=== PATIENT | male | born 1970 | race Caucasian/White ===

== ENCOUNTER 2017-05-05 20:22 | Emergency (ER) | payer OTHER, SELFPAY ==
[2017-05-05] MEDS ORDERED: Diazepam 10 MG/2 ML SYRINGE ONE (20:47)
[2017-05-05] MEDS ORDERED: Labetalol HCl 100 MG/20 ML VIAL ONE (20:47)
[2017-05-05 20:51] LABS: #Basophils 0.1 thou/uL (0.0-0.2); #Eosinphils 0.1 thou/uL (0.0-0.7); #Lymphocytes 1.6 thou/uL (1.20-3.40); #Monocytes 0.5 thou/uL (0.11-0.59); #Neutrophils 9.7 thou/uL (1.40-6.50); %Basophils 0.8 % (0.0-1.0); %Eosinophils 0.6 % (0.0-10.0); %Lymphocytes 13.4 % (21.0-51.0); %Monocytes 3.8 % (0.0-10.0); %Neutrophils 81.3 % (42.0-75.0); Hemoglobin 15.7 g/dL (14.0-18.0); Mean Corpuscular HGB CONC 34.5 g/dL (32.0-36.0); Mean Corpuscular Volume 86.9 fl (80.0-94.0); Mean Platelet Volume 9.8 fL (7.4-10.4); Platelet Count 239 thou/uL (130-400); RBC Distribution Width 12.3 % (11.5-14.5); Red Blood Cell (RBC) Count 5.23 mill/uL (4.70-6.10); White Blood Cell (WBC) Count 11.9 thou/uL (4.8-10.8)
[2017-05-05 21:00] LABS: PTT 25.8 SEC (22.9-36.1); Prothrombin Time 13.6 SEC (12.0-14.7)
[2017-05-05 21:11] LABS: CKMB 1.8 ng/mL (0-6.6); Troponin I Less than 0.010 ng/mL (< 0.028)
[2017-05-05 21:12] LABS: ALT (SGPT) 21 U/L (8-55); Albumin 4.3 g/dL (3.5-5.0); Alkaline Phosphatase 73 U/L (40-150); Anion Gap 19 mmol/L (10-20); BUN (Urea Nitrogen) 12 mg/dL (8.9-20.6); Bilirubin, Total 0.7 mg/dL (0.2-1.2); CK (CPK) 111 U/L (30-200); Calc. Creatinine Clearance 0 mL/min (70-130); Carbon Dioxide 22 mmol/L (22-29); Chloride 103 mmol/L (98-107); Estimated GFR-MDRD 88; Globulin 3.6 g/dL (2.4-3.5); Glucose 160 mg/dL (70-105); Protein, Total 7.9 g/dL (6.0-8.3); Sodium 140 mmol/L (136-145)
[2017-05-05 21:14] LABS: AST (SGOT) 24 U/L (5-34)
--- NOTE | 2017-05-05 21:23 | CT ---
CT OF THE BRAIN WITHOUT CONTRAST: Date: 05-05-17 Comparison: None. FINDINGS: There is a low density area adjacent to the right frontal horn in the right frontal lobe that seems more likely to be an old stroke than a new one. Additionally, there is a prominent lacunar infarct n ear the right capsule which appears old as well. No bleeding or gross acute stroke was found. If sym ptoms are suggestive of acute stroke, then an MRI would be needed. No mass or edema was seen. The ve ntricles are normal in size for age. There is some mucosal thickening in the some of the ethmoid air cells bilaterally and possibly even a small polyp or retention cyst in one of the left mid to posterior air cells. IMPRESSION: Evidence of prior right sided strokes. There were some equivocal findings in the left frontal lobe t hat could be old ischemic change. MRI would be best in this patient to date any particular lesion. POS: HOME
[2017-05-05] MEDS ORDERED: Nitroglycerin 2% Ointment 1 INCH/1 GM Packet ONE (21:30)
[2017-05-05] MEDS ORDERED: Meclizine HCl 25 MG TAB ONE (21:33)
[2017-05-05] MEDS ORDERED: Ondansetron HCl/PF 4 MG/2 ML Vial ONE (21:38)
[2017-05-05] MEDS ORDERED: Promethazine HCl 25 MG/ML VIAL ONE (22:24)
== END 2017-05-05 22:40 | disposition short-term general hospital (02) ==
LOC: BURERS 20:22
DX: I16.0 Hypertensive urgency (principal); R11.2 Nausea with vomiting, unspecified
CPT/HCPCS: 36416; 70450; 80053; 82553; 84484; 85025; 85610; 85730; 93005; 94760; 96361; 96374; 96375; J0360; J2405; J2550; J3360

== ENCOUNTER 2020-01-10 15:55 | Emergency (ER) | payer OTHER, SELFPAY ==
[2020-01-10 16:39] LABS: #Basophils 0.1 thou/uL (0.0-0.2); #Eosinphils 0.2 thou/uL (0.0-0.7); #Lymphocytes 0.6 thou/uL (1.20-3.40); #Monocytes 0.6 thou/uL (0.11-0.59); #Neutrophils 8.6 thou/uL (1.40-6.50); %Basophils 0.6 % (0.0-1.0); %Eosinophils 1.8 % (0.0-10.0); %Lymphocytes 6.4 % (21.0-51.0); %Monocytes 5.9 % (0.0-10.0); %Neutrophils 85.3 % (42.0-75.0); Hemoglobin 13.6 g/dL (14.0-18.0); Mean Corpuscular HGB CONC 33.4 g/dL (32.0-36.0); Mean Corpuscular Hemoglobin 29.2 pg (27.0-31.0); Mean Corpuscular Volume 87.5 fL (78.0-98.0); Mean Platelet Volume 7.3 fL (7.4-10.4); Platelet Count 239 thou/uL (130-400); Red Blood Cell (RBC) Count 4.66 mill/uL (4.70-6.10); White Blood Cell (WBC) Count 10.1 thou/uL (4.8-10.8)
[2020-01-10] MEDS ORDERED: Ondansetron PF 4 MG/2 ML Vial ONE (16:47)
[2020-01-10 16:53] LABS: ALT (SGPT) 34 U/L (8-55); AST (SGOT) 21 U/L (5-34); Alkaline Phosphatase 56 U/L (40-110); Anion Gap 16 mmol/L (10-20); BUN (Urea Nitrogen) 11 mg/dL (8.9-20.6); Bilirubin, Total 0.7 mg/dL (0.2-1.2); CK (CPK) 107 U/L (30-200); Calc. Creatinine Clearance 0 mL/min (70-130); Carbon Dioxide 25 mmol/L (22-29); Chloride 99 mmol/L (98-107); Estimated GFR-MDRD 66; Glucose 154 mg/dL (70-105); Lipase 16 U/L (8-78); Sodium 137 mmol/L (136-145)
[2020-01-10 17:07] LABS: Potassium 2.9 mmol/L (3.5-5.1)
--- NOTE | 2020-01-10 17:15 | CT ---
CT Brain WO Con: 01/10/2020 4:49 PM CLINICAL HISTORY: History of dizziness. IMAGING TECHNIQUE: Multiple CT images were obtained of the brain without IV contrast. COMPARISON: Prior CT the brain dated May 05, 2017 FINDINGS: Brain: No acute infarct or hemorrhage is evident. No midline shift. There is a stable remote lacuna r infarct involving the right globus pallidus as well as the right frontal lobe. Ventricles: Normal. No hydrocephalus. Skull: Intact. Visualized Paranasal sinuses: There is mild mucosal thickening within the ethmoid air cells. Mastoid air cells:Clear. Extracranial soft tissues:Normal. IMPRESSION: No acute intracranial abnormality.
[2020-01-10] MEDS ORDERED: Diazepam 10 MG/2 ML SYRINGE ONE (17:59)
== END 2020-01-10 18:49 | disposition home or self-care (01) ==
LOC: BURERS 15:55
DX: H81.13 Benign paroxysmal vertigo, bilateral (principal); K29.70 Gastritis, unspecified, without bleeding; I10 Essential (primary) hypertension; Z79.899 Other long term (current) drug therapy
CPT/HCPCS: 70450; 80053; 82550; 83690; 84443; 84484; 85025; 93005; 96361; 96365; 96375; J2405; J3360

== ENCOUNTER 2020-04-01 21:33 | Emergency (ER) | payer SELFPAY ==
[2020-04-01] MEDS ORDERED: Diazepam 10 MG/2 ML SYRINGE ONE (23:57)
[2020-04-01] MEDS ORDERED: Meclizine HCl 25 MG TAB ONE (23:58)
[2020-04-02] MEDS ORDERED: Ondansetron PF 4 MG/2 ML Vial ONE (00:15)
[2020-04-02 00:18] LABS: #Lymphocytes 0.9 thou/uL (1.20-3.40); #Monocytes 0.6 thou/uL (0.11-0.59); #Neutrophils 12.3 thou/uL (1.40-6.50); %Basophils 0.3 % (0.0-1.0); %Eosinophils 0.1 % (0.0-10.0); %Lymphocytes 6.6 % (21.0-51.0); %Monocytes 4.5 % (0.0-10.0); %Neutrophils 88.5 % (42.0-75.0); Hemoglobin 15.1 g/dL (14.0-18.0); Mean Corpuscular HGB CONC 33.6 g/dL (32.0-36.0); Mean Corpuscular Hemoglobin 30.1 pg (27.0-31.0); Mean Corpuscular Volume 89.7 fL (78.0-98.0); Mean Platelet Volume 8.9 fL (7.4-10.4); Platelet Count 223 thou/uL (130-400); RBC Distribution Width 12.5 % (11.5-14.5); Red Blood Cell (RBC) Count 5.01 mill/uL (4.70-6.10); White Blood Cell (WBC) Count 13.9 thou/uL (4.8-10.8)
[2020-04-02 00:28] LABS: ALT (SGPT) 24 U/L (8-55); AST (SGOT) 21 U/L (5-34); Albumin 4.2 g/dL (3.5-5.0); Alkaline Phosphatase 51 U/L (40-110); Anion Gap 19 mmol/L (10-20); BUN (Urea Nitrogen) 15 mg/dL (8.9-20.6); Bilirubin, Total 0.4 mg/dL (0.2-1.2); Calc. Creatinine Clearance 0 mL/min (70-130); Calcium 9.4 mg/dL (7.8-10.44); Carbon Dioxide 24 mmol/L (22-29); Chloride 102 mmol/L (98-107); Estimated GFR-MDRD 68; Glucose 167 mg/dL (70-105); Potassium 3.5 mmol/L (3.5-5.1); Protein, Total 7.2 g/dL (6.0-8.3); Sodium 141 mmol/L (136-145)
== END 2020-04-02 01:56 | disposition home or self-care (01) ==
LOC: BURERS 21:33
DX: R42 Dizziness and giddiness (principal); I10 Essential (primary) hypertension; Z79.899 Other long term (current) drug therapy
CPT/HCPCS: 80053; 85025; 93005; 96374; 96375; J2405; J3360

== ENCOUNTER 2020-11-24 10:38 | Emergency (ER) | payer SELFPAY ==
[2020-11-24] MEDS ORDERED: Ondansetron PF 4 MG/2 ML Vial ONE ×2 (11:04→11:05)
[2020-11-24] MEDS ORDERED: Diazepam 10 MG/2 ML SYRINGE ONE (11:04)
== END 2020-11-24 12:35 | disposition home or self-care (01) ==
LOC: BURERS 10:38
DX: H81.10 Benign paroxysmal vertigo, unspecified ear (principal); I10 Essential (primary) hypertension; Z79.899 Other long term (current) drug therapy
CPT/HCPCS: 96374; 96375; J2405; J3360